=== PATIENT | male | born 1985 ===

== ENCOUNTER 2017-01-10 21:18 | Emergency (ER) | payer SELFPAY ==
[2017-01-10 21:33] VITALS: BP 135/81; PULSE 65; RESP 18; TEMP 97.9; O2SAT 99
--- NOTE | 2017-01-10 21:51 | C.PDOC ---
History Of Present Illness 31 yo male w/o significant PMHx come in for evaluation of Left cervical painless lymph nodes gradually growing for past 7 months. Pt sts, " developed some itchiness throat area". Otherwise, pt denies fever, chills, night sweats, weight loss, headache, dizziness, visual changes, focal deficits, CP, SOB, abd. pain, back pain or any other active complaints. Ambulate to Ed for evaluation, not in any apparent dsitress. Time Seen by Provider: 01/10/17 21:38 Chief Complaint (Nursing): ENT Problem History Per: Patient Current Symptoms Are (Timing): Still Present Past Medical History Reviewed: Historical Data, Nursing Documentation, Vital Signs Vital Signs: Last Vital Signs Temp 97.9 F 01/10/17 21:32 Pulse 65 01/10/17 21:32 Resp 18 01/10/17 21:32 BP 135/81 01/10/17 21:32 Pulse Ox 99 01/10/17 22:40 - Medical History PMH: No Chronic Diseases Surgical History: No Surg Hx Family History: States: No Known Family Hx - Social History Hx Alcohol Use: No Hx Substance Use: No - Immunization History Hx Tetanus Toxoid Vaccination: No Hx Influenza Vaccination: No Hx Pneumococcal Vaccination: No Review Of Systems Except As Marked, All Systems Reviewed And Found Negative. Constitutional: Negative for: Fever, Chills, Weakness, Malaise, Weight loss Eyes: Negative for: Vision Change ENT: Positive for: Throat Pain. Negative for: Ear Discharge, Nose Discharge, Nose Congestion, Throat Swelling Cardiovascular: Negative for: Chest Pain, Palpitations Respiratory: Negative for: Cough, Shortness of Breath, Wheezing Gastrointestinal: Negative for: Nausea, Vomiting, Abdominal Pain Genitourinary: Negative for: Dysuria, Frequency, Incontinence Skin: Negative for: Rash Neurological: Negative for: Weakness, Numbness, Altered Mental Status, Headache , Dizziness Physical Exam - Physical Exam Appears: Well, No Acute Distress Skin: Normal Color, Warm, Dry Eye(s): bilateral: Normal Inspection, PERRL, EOMI Nose: No Flaring, No Discharge Oral Mucosa: Moist, No Drooling, No Trismus Tongue: Normal Appearing, No Lesions Lips: Normal Appearing, No Swelling, No Lesions Throat: No Erythema, No Exudate, No Drooling, Other (Uvula midline, no edema.) Neck: No Midline Cervical Tenderness, No Paracervical Tenderness, No Step Off Deformity, Supple Lymphatic: Adenopathy (Left , non-tender, anterior cervical lymph node 4#3 cm, no erythema, no flactulance.) Cardiovascular: Rhythm Regular Respiratory: No Decreased Breath Sounds, No Stridor, No Wheezing Gastrointestinal/Abdominal: Soft, No Tenderness, No Organomegaly, No Distention , No Guarding Extremity: No Pedal Edema, No Deformity Neurological/Psych: Oriented x3, Normal Speech ED Course And Treatment O2 Sat by Pulse Oximetry: 99 Pulse Ox Interpretation: Normal - CT Scan/US CT neck soft tissue w/o contrast Other Rad Studies (CT/US): Radiology Report Reviewed CT/US Interpretation: cervical painless lymphodenopathy. TECHNIQUE: Axial computed tomography images of the neck without intravenous contrast. This CT exam was. performed using one or more of the following dose reduction techniques: automated exposure. control, adjustment of the mA and/or kV according to patient size, and/or use of iterative. reconstruction technique. Coronal and sagittal reformatted images were created and reviewed. COMPARISON: No relevant prior studies available. FINDINGS: Limitations: Lack of intravenous contrast. Nasopharynx: Unremarkable. Oropharynx: Unremarkable. No significant tonsillar enlargement. Hypopharynx: Unremarkable. Larynx: Unremarkable. Normal epiglottis. Trachea: Unremarkable. Retropharyngeal space : Unremarkable. Submandibular/parotid glands: Unremarkable. Glands are normal in size. Thyroid: Unremarkable. No enlarged or calcified nodules. Bones/joints : No acute fracture. Soft tissues: Unremarkable. Vasculature: No acute findings. Lymph nodes: Multiple subcentimeter short axis cervical lymph nodes. Few enlarged LEFT jugular. lymph nodes, largest measuring up to 2.5 cm short axis. Lung apices: Unremarkable as visualized. IMPRESSION: 1. Lymphadenopathy. Clinical correlation and follow up are recommended. 2. Incidental/non-acute findings are described above. Thank you for allowing us to participate in the care of your patient. Dictated and Authenticated by: Kailash Tierney MD. 01/10/2017 10:30 PM Eastern Time ([place] & [place]) Progress Note: On re-eavluation, pt is afebrile, hemodynamicalsy table. Non- toxic. TOlerate Po well in ED. PusleOx 99% RA. ENT: no acute findings. Uvula midline, no edema, no trismus, no drooling, no stridor. neck: (+) left anterior LN swelling, no cellulitis, no flactulance, Supple, No meningeals ign. Lungs: CTA B/L, BS equal B/L. Neurologicaly intact. Imaging review. Pt advised and ref. to F/u with Clinic in 2-3 days for re-eval. r/o Hodgkin. return if any new changes. Disposition Counseled Patient/Family Regarding: Studies Performed, Diagnosis, Need For Followup - Disposition Referrals: [facility] [Outside] Formerly [facility] [Outside] Disposition: HOME/ ROUTINE Disposition Time: 22:35 Condition: STABLE Additional Instructions: FOLLOW UP WITH CLINIC IN 2-3 DAYS FOR FURTHER EVALUATION/BIOPSY AND FURTHER TX NEED RETURN TO ED IF ANY WORSENING OR NEW CHANGES. Instructions: Hodgkin Disease (ED), Lymphadenopathy (ED) Print Language: GEORGIAN - Clinical Impression Clinical Impression: Cervical lymphadenopathy
--- NOTE | 2017-01-10 22:31 | CT ---
EXAM: CT Neck Without Intravenous Contrast CLINICAL HISTORY: 31 years old, male; Signs and symptoms; Mass, lump, or swelling in neck; Additional info: Left cervical painless lymphodenopathy TECHNIQUE: Axial computed tomography images of the neck without intravenous contrast. This CT exam was performed using one or more of the following dose reduction techniques: automated exposure control, adjustment of the mA and/or kV according to patient size, and/or use of iterative reconstruction technique. Coronal and sagittal reformatted images were created and reviewed. COMPARISON: No relevant prior studies available. FINDINGS: Limitations: Lack of intravenous contrast. Nasopharynx: Unremarkable. Oropharynx: Unremarkable. No significant tonsillar enlargement. Hypopharynx: Unremarkable. Larynx: Unremarkable. Normal epiglottis. Trachea: Unremarkable. Retropharyngeal space: Unremarkable. Submandibular/parotid glands: Unremarkable. Glands are normal in size. Thyroid: Unremarkable. No enlarged or calcified nodules. Bones/joints: No acute fracture. Soft tissues: Unremarkable. Vasculature: No acute findings. Lymph nodes: Multiple subcentimeter short axis cervical lymph nodes. Few enlarged LEFT jugular lymph nodes, largest measuring up to 2.5 cm short axis. Lung apices: Unremarkable as visualized. IMPRESSION: 1. Lymphadenopathy. Clinical correlation and follow up are recommended. 2. Incidental/non-acute findings are described above.
== END 2017-01-10 22:49 | disposition home or self-care (01) ==
LOC: C.ER 21:18
DX: R59.0 Localized enlarged lymph nodes (principal)